=== PATIENT | male | born 1945 | race Caucasian/White ===

== ENCOUNTER 2016-09-19 06:00 | Day surgery (SDC) | payer MEDICARE ==
[~2016-09-19] VITALS: Ht 172.7 cm; Wt 83.9 kg
[~2016-09-19 06:00] MED LIST: COQ10200 MG PO; IRON325 M1 PO; LORTAB 5/3255 MG PO; MULTI VIT PO; PRAVASTATIN SOD20 MG PO; PROBIOTIC1 TAB PO; VITAMIN B-12500 MCG PO; VITAMIN D31000 UNI1 PO
[2016-09-19 10:15] VITALS: BP 133/77
[2016-09-19] MEDS ORDERED: PERCOCET 5/325M1 TAB PO (10:19)
== END 2016-09-19 10:45 | disposition home or self-care (01) ==
LOC: ORM 06:00
PROVIDERS: ATTEND Surgery
PROC: 0YU50JZ Supplement Right Inguinal Region with Synthetic Substitute, Open Approach (ICD-10-PCS; principal; 2016-09-19)
DX: K40.90 Unilateral inguinal hernia, without obstruction or gangrene, not specified as recurrent (principal)

== ENCOUNTER 2016-10-21 22:24 | Observation (INO) | payer MEDICARE ==
[~2016-10-21] VITALS: Ht 172.7 cm; Wt 81.6 kg
[~2016-10-21 22:24] MED LIST changes: +PERCOCET 5/325M1 TAB PO
--- NOTE | 2016-10-21 22:39 | NUR ---
TO TX ROOM WITH STEADY GAIT
--- NOTE | 2016-10-21 23:06 | NUR ---
PATIENT MEDICATED FOR PAIN AND NAUSEA. WILL MONITOR FOR EFFECT.
--- NOTE | 2016-10-21 23:06 | NUR ---
PATIENT STATES PAIN MEDS ARE STARTING TO HELP. AWARE OF PENDING ULTRASOUND.
[2016-10-21 23:20] LABS: HEMATOCRIT 41.6 % (39.0-50.0); HEMOGLOBIN 14.8 g/dl (14.0-18.0); IMMATURE GRANULOCYTES 0.4 % (0.0-1.0); MEAN CELL VOLUME 94.1 fL CALC (80.0-100.0); MEAN CORPUSCULAR HGB 33.5 pG CALC (26.0-32.0); MEAN CORPUSCULAR HGB CONC 35.6 g/L CALC (32.0-36.0); NEUT# 4.42 thou/uL (1.82-7.42); RED BLOOD COUNT 4.42 mill/uL (4.70-6.10); RED CELL DISTRI WIDTH 13.1 % (11.5-15.5)
[2016-10-21 23:23] LABS: ALBUMIN 4.2 g/dL (3.2-5.0); ALKALINE PHOSPHATASE 93 u/l (38-126); ANION GAP 17 (6-22 (CALC)); BILIRUBIN, TOTAL 0.5 mg/dL (0.0-1.4); BUN 16 mg/dL (8-23); BUN/CREATININE RATIO 19 (12-20 (CALC)); CALCIUM 9.3 mg/dL (8.4-10.2); CARBON DIOXIDE 26 mmol/l (22-30); CHLORIDE 98 mmol/l (95-108); CREATININE 0.9 mg/dL (0.7-1.3); GFR > 60 ML/MIN (>=60 (CALC)); GFR FOR AFR.AMER. > 60 ML/MIN (>=60 (CALC)); GLUCOSE 131 mg/dL (82-115); LIPASE 180 u/l (23-300); POTASSIUM 3.6 mmol/l (3.5-5.1); SGOT/AST 20 u/l (19-48); SGPT/ALT 24 u/l (11-66); SODIUM 137 mmol/l (137-146); TOTAL PROTEIN 7.7 g/dL (6.3-8.2)
[2016-10-21 23:35] LABS: MYOGLOBIN 16 ng/mL (0 - 121)
--- NOTE | 2016-10-21 23:59 | NUR ---
DR RIBEIRO AT BEDSIDE TO DISCUSS RESULTS AND PLAN OF CARE.
--- NOTE | 2016-10-22 00:32 | NUR ---
ABX INFUSING. PATIENT MEDICATED ADDITIONALLY FOR PAIN. WILL MONITOR FOR EFFECT. PATIENT AWARE OF PLANS TO ADMIT.
--- NOTE | 2016-10-22 00:44 | NUR ---
PATIENT STATES PAIN IS ALMOST GONE AFTER TORADOL. IVF HUNG. PATIENT AND SPOUSE AWARE OF ROOM ASSIGNMENT AND PENDING TRANSPORT.
--- NOTE | 2016-10-22 01:00 | NUR ---
REPORT CALLED TO [facility]. PATIENT READIED FOR TRANSPORT TO FLOOR.
[2016-10-22 01:15] VITALS: BP 131/75
--- NOTE | 2016-10-22 01:30 | NUR ---
PATIENT ADMITTED FROM ER VIA STRETCHER WITH ER STAFF IN ATTENDANCE. PATIENT ASSISTED FROM STRETCHER TO STANDING SCALE AND THEN TO THE BED. PATIENT IS STEADY O N HIS FEET. PATIENT IS AWAKE ALERT AND ORIENTEDX3. PATIENT WITH NO COMPLAINTS OF PAIN AT THIS TIME. PATIENT WAS MEDICATED FOR PAIN IN THE ER. PATIENT STATES THAT HE WAS FINE AND THEN APPROX 1999 HE STARTED HAVING RUQ PAIN. SOME NAUSEA BUT NO VOMITTING. PATIENT WAS BROUGHT TO THE ER BY HIS . PATIENT STATES VONDA HE HAD RECENT SURGERY WITH DR. BRANDT HERE FOR MULTIPLE HERNIA REPAIRS. PATIENT INSTRUCTED NPO AT THIS TIME. PATIENT WITH IV SITE TO LEFT FOREARM WITH D5LR PATENT AND INFUSING AT 100CC/HR ORDERED. ABD IS SOFT WITH BS+. PATIENT ORIENTED TO ROOM AND SUROUNDINGS. SAFETY PRECAUTIONS REVIEWED WITH PATIENT. INSTRUCTED ON USE OF NURSE CALL LIGHT SYSTEM AND TV REMOTE. CALL LIGHT IN REACH. WILL CONT TO MONITOR.
[2016-10-22 03:52] VITALS: BP 127/69
--- NOTE | 2016-10-22 05:03 | NUR ---
PATIENT RESTING IN BED AT THIS TIME WITH NO COMPLAINTS. CALL LIGHT IN REACH. WILL CONT TO MONITOR.
--- NOTE | 2016-10-22 07:00 | NUR ---
RECEIVED BEDSIDE REPORT FROM [facility] SANCHEZ. IN SUPINE POSITION WITH EYES CLOSED, AWAKENS EASILY. RESPS EVEN AND UNLABORED ON ROOM AIR. DENIES NAUSEA, VOMITING, ABD PAIN SINCE ADMISSION. #20 LFA INFUSING WITHOUT DIFFICULTY, SITE APPEARS HEALTHY. PLAN OF CARE DISCUSSED. SAFETY PRECAUTIONS REINFORCED. BED IN LOWEST POSITION WITH WHEELS LOCKED. CALL LIGHT WITHIN REACH. ENCOURAGED PT TO CALL FOR ANY NEEDS.
[2016-10-22 08:45] VITALS: BP 120/75
--- NOTE | 2016-10-22 10:05 | NUR ---
DR LYON IN TO SEE PT, NEW ORDERS RECEIVED.
--- NOTE | 2016-10-22 12:18 | NUR ---
TOLERATED LOW FAT DIET WITHOUT C/O NAUSEA OR ABD PAIN. CALL LIGHT WITHIN REACH. WILL CONTINUE TO MONITOR.
--- NOTE | 2016-10-22 13:19 | NUR ---
Discharge instructions given. Patient verbalizes understanding of same. Discharged in stable condition via Wheelchair to Home with spouse. All belongings sent with pt.
== END 2016-10-22 13:14 | disposition home or self-care (01) ==
LOC: ENPENDDIS → ED 22:24 → ED-I 23:50 → ED 10-22 00:06 → MS2 10-22 00:07
PROVIDERS: Emergency Medicine; ADMIT Internal Medicine; ATTEND Internal Medicine
DX: K80.20 Calculus of gallbladder without cholecystitis without obstruction (principal); E78.5 Hyperlipidemia, unspecified; R94.31 Abnormal electrocardiogram [ECG] [EKG]
CPT/HCPCS: J1650

== ENCOUNTER 2018-06-15 14:12 | Inpatient (IN) | payer MEDICARE ==
[~2018-06-15] VITALS: Ht 172.7 cm; Wt 89.1 kg
[2018-06-15] VITALS (11 sets, daily range): BP systolic 104–131; BP diastolic 60–72
--- NOTE | 2018-06-15 14:12 | NUR ---
PT TO ROOM 11 VIA EMS STRETCHER. MONITOR SHOWING A RATE OF 152 SVT. MD AT BEDSIDE, PT REPORTS 5/10 LEFT SIDED CHEST PAIN. VSS AT THIS TIME. AT [facility].
--- NOTE | 2018-06-15 14:12 | NUR ---
12 MG OF ADENOSINE RAPID IVP BY TAE KING RN. NO CHANGES NOTED TO MONITOR. EKG COMPLETED. MD AT BEDSIDE. PT REMAINS A&O X 3.
--- NOTE | 2018-06-15 14:20 | NUR ---
10 MG CARDIAZEM ADMINISTERED RAPID IVP BY TAE KING RN. MONITOR SHOWING SVT AT A RATE OF 155.
--- NOTE | 2018-06-15 14:21 | NUR ---
PT REMAINS STABLE AT THIS TIME. PT A&O X 3, RESTING IN STRETCHER HR 154 SVT ON MONITOR. BP 102/63. MD AT BEDSIDE. PT PAIN 4/10 AT THIS TIME.
--- NOTE | 2018-06-15 14:25 | NUR ---
10 MG OF LABETOLOL GIVEN IVP, HEART RATE 144, SVT. PT REPORTS PAIN CONTINUES TO BE 4/10.
--- NOTE | 2018-06-15 14:30 | NUR ---
CHANGES ON THE MONITOR NOTED. MD AT BEDSIDE EKG COMPLETED. PT CONVERTED TO SINUS RHYTHM AT A RATE OF 76. PT IS NOW PAIN FREE.
[2018-06-15 14:42] LABS: HEMOGLOBIN 15.5 g/dl (14.0-18.0); IMMATURE GRANULOCYTES 0.5 % (0.0-5.0); MEAN CELL VOLUME 96.1 fL CALC (80.0-100.0); MEAN CORPUSCULAR HGB 33.8 pG CALC (26.0-32.0); MEAN CORPUSCULAR HGB CONC 35.2 g/L CALC (32.0-36.0); NEUT# 3.62 thou/uL (1.82-7.42); RED BLOOD COUNT 4.58 mill/uL (4.70-6.10); RED CELL DISTRI WIDTH 13.3 % (11.5-15.5)
--- NOTE | 2018-06-15 15:11 | NUR ---
AT BEDSIDE TO REEVALUATE PT. PT RESTING COMFORTABLY IN STRETCHER AND DENIES ANY PAIN AT THIS TIME MONITOR SHOWING 74, SINUS RHYTHM. BP 99/55.
[2018-06-15 15:28] LABS: ANION GAP 14 (6-22 (CALC)); BUN 23 mg/dL (8-23); BUN/CREATININE RATIO 33 (12-20 (CALC)); CARBON DIOXIDE 23 mmol/l (22-30); CHLORIDE 106 mmol/l (95-108); CREATININE 0.7 mg/dL (0.7-1.3); GFR > 60 ML/MIN (>=60 (CALC)); GFR FOR AFR.AMER. > 60 ML/MIN (>=60 (CALC)); POTASSIUM 3.7 mmol/l (3.5-5.1); SODIUM 139 mmol/l (137-146)
--- NOTE | 2018-06-15 15:56 | NUR ---
PT REMAINS IN SINUS RHYTHM AT A RATE OF 75. PT IS PAIN FREE. CALL GARO JAMES, WILL CONTINUE TO MONTIOR.
--- NOTE | 2018-06-15 17:51 | NUR ---
REPORT CALLED TO FLORESITA PEÑA.
--- NOTE | 2018-06-15 18:05 | NUR ---
Admission Note Report Given to: sbar printed to floor Transported by: Wheelchair x Stretcher Transported with: x Nurse Transporter x Patent IV O2 x Frame Wirer
--- NOTE | 2018-06-15 18:14 | NUR ---
PT ARRIVED TO MS2 VIA STRETCHER ACCOMPANIED BY FAMILY MEMBER AND ER NURSE. PT AMBULATED TO BED, WT OBTAINED BY BED, VITALS OBTAINED. ORIENTED PT TO ROOM AND CALL LIGHT PLACED IN REACH. MD TO BEDSIDE DISCUSSING POC, PT IN AGREEMENT.INITIATED IVF TO RFA. DINNER TRAY PROVIDED. CALL LIGHT IN REACH,CONTINUE TO MONITOR.
--- NOTE | 2018-06-15 19:30 | NUR ---
PT TO ICU BED 1 VIA BED ACCOMPANIED BY MS STAFF. PT IS ALERT AND ORIENTED X3. ACCOMPANIED BY . PT PLACED ON MONITORS. NO DISTRESS NOTED. ADMISSION ASSESSMENT COMPLETED AT THIS TIME. IV PATENT X2. PLAN OF CARE DISCUSSED WITH PT AND . BOTH VERBALIZED UNDERSTANDING. CALL LIGHT IN REACH. WILL CONTINUE TO MONITOR
--- NOTE | 2018-06-15 19:30 | NUR ---
1899-DURING REPORT FROM CASEY CANAS RECIEVED CALL FROM CHRISTIAN IN LAB WITH CRITICAL TROP RESULT-0.417. PATIENT RESTING IN BED WITH O2 VIA NASAL CANNULA IN PLACE. PATIENT IS AWAKE ALERT AND ORIENTEDX3. PATIENT IS ASYMPTOMATIC WITH NO COMPLAINTS OF CHEST PAIN, SOB OR PALPATATIONS. SKIN IS WARM AND DRY AND COLOR IS GOOD. TELE MONITOR IS READING NSR AT THIS TIME. IV SITE TO LEFT WRIST WITH IVF NS PATENT AND INFUSING AT 100CC/HR ORDERED. SITE APPEARS HEALTHY. SALINE LOCK TO RIGHT AC INTACT AND APPEARS HEALTHY AT THIS TIME. STAT EKG ORDERED AND RT PAGED. DR. LYON CALL AND WILL CALL BACK. 1914-RT AT BEDSIDE-EKG DONE. DR. LYON CALLED BACK AND ORDERS TO TRANSFER TO ICU RECIEVED. NEW MED ORDERS RECIEVED AND WRITTEN. STATES THAT HE HAS SPOKEN TO DR. PUTNAM AND HE WILL SEE THE PATIENT IN THE MORNING. ENRICO WAGGONER RN NSG OPERATIONS ANALYST NOTIFIED OF TRANSFER. PATIENT AND ADVISED OF IMPENDING TRANSFER TO ICU FOR CLOSER MONITORING DUE TO ELEVATED TROP. SPOKE WITH JUAREZ SANCHEZ IN ICU AND PATIENT WILL BE TRANSFERRED TO ICU BED1. 1929-PATIENT TRANSFERRED VIA BED TO ICU BED1. JUAREZ AT BEDSIDE TO RECIEVE PATIENT. BEDSIDE REPORT WAS GIVEN. PATIENT REMAINS ASYMPTOMATIC AT THIS TIME. AT BEDSIDE.
--- NOTE | 2018-06-15 20:15 | NUR ---
DR LYON PHONED TO VERIFY ORDERS AND PROVIDED MD WITH PATIENT UPDATE. NO NEW ORDERS RECEIVED.
--- NOTE | 2018-06-15 21:51 | NUR ---
PT RESTING IN BED WITH EYES CLOSED. RESP ARE EVEN AND UNLABORED. NO DISTRESS NOTED. CALL LIGHT IN REACH. WILL CONTINUE TO MONITOR.
[2018-06-15 22:14] LABS: URINE BILIRUBIN - DIPSTICK NEGATIVE (NEGATIVE); URINE BLOOD DIPSTICK NEGATIVE (NEGATIVE); URINE CLARITY CLEAR; URINE COLOR YELLOW; URINE GLUCOSE - DIPSTICK NEGATIVE (NEGATIVE); URINE KETONE TRACE mg/dL (NEGATIVE); URINE LEUK ESTERASE NEGATIVE (Negative); URINE NITRITE - DIPSTICK NEGATIVE (Negative); URINE PH 5.5 (4.5-8.0); URINE PROTEIN - DIPSTICK NEGATIVE (NEG-TRACE); URINE SPECIFIC GRAVITY 1.015; URINE UROBILINOGEN - DIPSTICK 0.2 E.U./dL (0.2)
--- NOTE | 2018-06-15 23:47 | NUR ---
PT RESTING IN BED WITH EYES CLOSED. RESP ARE EVEN AND UNLABORED. NO DISTRESS NOTED. SB ON MONITOR. CALL LIGHT IN REACH. WILL CONTINUE TO MONITOR.
[2018-06-16] VITALS (16 sets, daily range): BP systolic 103–171; BP diastolic 55–79
--- NOTE | 2018-06-16 00:27 | NUR ---
FIELD MERCHANDISER INTO ROOM TO DRAWM MN TROPONIN.
--- NOTE | 2018-06-16 01:05 | NUR ---
FLORENTINO FROM THE LAB CALLED AND STATES THAT TROPONIN IS NOW 0.532. DR LYON NOTIFIED.
--- NOTE | 2018-06-16 01:49 | NUR ---
PT RESTING IN BED WITH EYES CLOSED. RESP ARE EVEN AND UNLABORED. NO DISTRESS NOTED. REMAINS SB ON MONITOR. CALL LIGHT IN REACH. WILL CONTINUE TO MONITOR.
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
--- NOTE | 2018-06-16 05:46 | NUR ---
PT RESTING IN BED WITH EYES CLOSED. RESP ARE EVEN AND UNLABORED. NO DISTRESS NOTED. CALL LIGHT IN REACH. WILL CONTINUE OT MONITOR
--- NOTE | 2018-06-16 06:18 | NUR ---
POLISHING MACHINE OPERATOR INTO DRAW AM LABS
[2018-06-16 06:47] LABS: MAGNESIUM 2.1 mg/dL (1.6-2.3)
--- NOTE | 2018-06-16 07:32 | NUR ---
PT DENIES PAIN. DENIES SOB. STATES HES HAD A HEART MURMUR HIS WHOLE LIFE JUST LIKE HIS MOMMA. STRONG PULSES x4. NO EDEMA. SKIN WARM/DRY/PINK. EYES PERRLA @3. CONTENT MANAGER STRONG. THOMPSON. ABD SOFT/NONTENDER. DENIES N/V/D. BM YESTERDAY. BREATHING EVEN/UNLABORED, LUNG SOUNDS CLEAR. SINUS KIM ON TELE @58. CALLBELL W/IN REACH.
--- NOTE | 2018-06-16 08:03 | NUR ---
DR BROWN @BEDSIDE WITH PT/.
--- NOTE | 2018-06-16 08:40 | NUR ---
DR MAC OFFICE WILL CALL [facility] THIS AM TO TRANSFER PT FOR BENEFITS COUNSELOR. PT/ AWARE. PT PLACED NPO.
--- NOTE | 2018-06-16 09:09 | NUR ---
[facility], [facility] TRANSFER [facility], WORKING ON GETTING A ROOM. WCB.
--- NOTE | 2018-06-16 09:12 | NUR ---
DR SNEED @BEDSIDE ASSESSING PT. @BEDSIDE.
--- NOTE | 2018-06-16 09:14 | NUR ---
PHARM ASKED TO PROFILE PTS SHINOX, UNABLE TO PULL FROM [employer]OV [employer].
--- NOTE | 2018-06-16 10:12 | NUR ---
CURTAINS & DOOR CLOSED SO PT CAN REST, PER PT REQUEST. & COUSIN @BEDSIDE.
--- NOTE | 2018-06-16 10:48 | NUR ---
TRANSFER PENDING ROOM ASSIGNMENT FROM [facility]. PT DENIES CP/SOB THIS AM.
--- NOTE | 2018-06-16 11:04 | NUR ---
ADMINISTRATION @BEDSIDE WITH PT/.
--- NOTE | 2018-06-16 11:22 | NUR ---
PER [facility] TRANSFER [facility], ALL BEDS ARE FULL, WONT HAVE A BED AVAILABLE UNTIL LATER THIS AFTERNOON. DR KEVIN MONROE.
--- NOTE | 2018-06-16 11:30 | NUR ---
BACK IN ROOM. PT STILL ASYMPTOMATIC. WILL CONTINUE TO MONITOR. SB 56 ON TELE.
--- NOTE | 2018-06-16 12:28 | NUR ---
POSSIBLE CHANGES ON TELE NOTED. REPEAT EKG COMPLETED. DR SNEED AWARE.
--- NOTE | 2018-06-16 15:23 | NUR ---
[facility] TRANSFER [facility] GAVE ROOM 789B. CASE MANAGEMENT NOTIFIED.
--- NOTE | 2018-06-16 16:53 | NUR ---
TRANSPORTATION ETA 1HR
--- NOTE | 2018-06-16 18:44 | NUR ---
PT OUT THE DOOR WITH [facility] IN STABLE CONDITION ON
--- NOTE | 2018-06-16 18:54 | NUR ---
report called to landon at [facility].
== END 2018-06-16 18:44 | disposition short-term general hospital (02) | DRG 281 ==
LOC: ED 14:12 → ED-I 15:41 → ED 16:00 → MS2 16:01 → ICU 16:01
PROVIDERS: Family Medicine; ADMIT Internal Medicine; ATTEND Internal Medicine
DX: I21.4 Non-ST elevation (NSTEMI) myocardial infarction (principal); I47.1 Supraventricular tachycardia; I35.0 Nonrheumatic aortic (valve) stenosis; E78.5 Hyperlipidemia, unspecified; J61 Pneumoconiosis due to asbestos and other mineral fibers; E55.9 Vitamin D deficiency, unspecified; E66.9 Obesity, unspecified; Z82.49 Family history of ischemic heart disease and other diseases of the circulatory system
CPT/HCPCS: G0378; J0153; J1650

== ENCOUNTER 2018-09-04 09:54 | Outpatient (RCR) | payer MEDICARE ==
[~2018-09-04 09:54] MED LIST changes: +ASPIRIN LOW DOS81 M3; +KLOR-CON M2020 MEQ PO; +LASIX 40 MG40 MG/TAB PO; +LIPITOR20 M1 PO; +METOPROL TAR25 MG PO; +NON-ASPIRIN PA325 MG; +POLY GLYCOL3350 MG PO; +TESSALON PERLE100 MG; +VIT B-12 PO
== END 2018-09-04 11:00 | disposition home or self-care (01) ==
LOC: CR 09:54
PROVIDERS: ATTEND Internal Medicine
DX: Z95.2 Presence of prosthetic heart valve (principal); Z95.1 Presence of aortocoronary bypass graft

== ENCOUNTER 2024-09-02 12:18 | Emergency (ER) | payer MEDICARE ==
[2024-09-02] VITALS (7 sets, daily range): BP systolic 141–158; BP diastolic 72–122
[~2024-09-02] VITALS: Ht 172.7 cm; Wt 84.0 kg
[2024-09-02] MEDS ORDERED: AMOX/K CLAV875 M1 PO (13:59)
== END 2024-09-02 14:27 | disposition home or self-care (01) ==
LOC: ED 12:18
DX: J32.9 Chronic sinusitis, unspecified (principal); Z20.822 Contact with and (suspected) exposure to COVID-19